=== PATIENT | female | born 1950 | race Caucasian/White ===

== ENCOUNTER 2016-12-03 18:55 | Inpatient (IN) | payer MEDICARE, BC ==
[~2016-12-03] VITALS: Ht 160 cm; Wt 88.9 kg
[~2016-12-03 18:55] MED LIST: AMITRIPTYLINE H75 MG PO; AMOXICILLIN 8751 TAB PO; DARVOCET N 101 UDTAB PO; HYOMAX-SL0.125 MG SL; MACROBID 1100 MG/CAP PO; NORFLEX 10100 MG/TAB PO; PRAVACHOL10 MG PO; PREMARIN 0.60.625 M1 PO; SAVELLA50 MG PO; VIT D; ZOMIG2.5 MG PO
[2016-12-03 19:56] LABS: HEMATOCRIT 39.8 % (37.0-47.0); HEMOGLOBIN 13.6 g/dl (12.5-16.0); MEAN CELL VOLUME 92 fl (80.0-100.0); MEAN CORPUSCULAR HEMOGLOBIN 31 pg (27.0-31.0); MEAN CORPUSCULAR HGB CONC 34 g/dl (33.0-37.0); PLATELET COUNT 97 K/mm3 (130-400); RED BLOOD COUNT 4.33 M/mm3 (4.10-5.30)
[2016-12-03 19:58] LABS: WHITE BLOOD COUNT 1.8 K/mm3 (4.8-10.8)
[2016-12-03 19:59] LABS: ADD PATHOLOGY DIFF REVIEW NO
[2016-12-03 20:04] LABS: ADJUSTED CALCIUM 9.8 mg/dL (8.4-10.2); ALBUMIN 4.5 gm/dL (3.5-5.0); BILIRUBIN,TOTAL 1.1 mg/dL (0.0-1.0); C-REACTIVE PROTEIN 4.7 mg/dL (0.0-0.9); CALCIUM 10.2 mg/dL (8.4-10.2); CREATININE, serum 1.53 mg/dL (0.52-1.25); POTASSIUM 4.4 mmol/L (3.4-5.0); TOTAL PROTEIN 7.4 gm/dL (6.4-8.2)
[2016-12-03 20:12] LABS: INFLUENZA B NEGATIVE
[2016-12-03 20:31] LABS: BAND 4 % (0-10); BASOPHIL 2 % (0-2); NEUTROPHILS 64 % (42.0-75.2); TOTAL CELLS COUNTED 100
[2016-12-03 20:34] LABS: HYPOCHROMIA 1+; MICROCYTOSIS 1+; STOMATOCYTE 1+
[2016-12-03 20:55] LABS: PH 7 (5-8); SQUAMOUS EPITHELIAL 0-2 /hpf; URINE APPEARANCE Hazy; URINE BACTERIA Rare /hpf; URINE BILIRUBIN Negative (NEGATIVE); URINE BLOOD Negative (NEGATIVE); URINE COLOR Yellow; URINE GLUCOSE Negative (NEGATIVE); URINE KETONE Negative (NEGATIVE); URINE RBC 0-2 /hpf; URINE UROBILINOGEN Negative (NEGATIVE)
[2016-12-04] VITALS (589 sets, daily range): BP systolic 75–141; BP diastolic 35–86; PULSE 64–103; TEMP 97–98.7; O2SAT 75–100
[2016-12-04 00:50] LABS: VENOUS BLOOD GAS BE -8.3 (-4-4); VENOUS BLOOD GAS SAO2 61.3 % (60-80)
[2016-12-04 00:51] LABS: VENOUS BLOOD GAS SITE CENTRAL LINE
[2016-12-04 01:07] LABS: INR 1.3 (0.8-3.0)
[2016-12-04 01:26] LABS: SALICYLATE < 1.0 mg/dL
[2016-12-04] MEDS ORDERED: LIPITOR20 MG PO (01:27)
[2016-12-04] MEDS ORDERED: LIPITOR 80MG80 MG PO (01:27)
[2016-12-04] MEDS ORDERED: SYNTHROID0.088 MG/T PO (01:30)
[2016-12-04 01:31] LABS: TROPONIN-I < 0.012 ng/mL (0.000-0.034)
[2016-12-04] MEDS ORDERED: COZAAR 25MG25 MG/TAB PO (01:31)
[2016-12-04] MEDS ORDERED: VITAMIN D1000 IU PO (01:32)
[2016-12-04] MEDS ORDERED: ULTRAM 50MG TAB50 MG (01:33)
[2016-12-04] MEDS ORDERED: KRILL OIL 3001 EACH (01:34)
[2016-12-04] MEDS ORDERED: VOLTAREN GEL 1%1 TU (01:35)
[2016-12-04] MEDS ORDERED: LYRICA 50MG CAP50 MG PO (01:36)
[2016-12-04] MEDS ORDERED: TYLENOL PM EXTR1 TA1 (01:37)
[2016-12-04] MEDS ORDERED: VIMOVO DR 375-1 EACH (01:38)
[2016-12-04] MEDS ORDERED: FLEXERIL5 MG (01:39)
[2016-12-04 04:28] LABS: VENOUS BLOOD GAS BE -8.6 (-4-4); VENOUS BLOOD GAS SAO2 57.8 % (60-80)
[2016-12-04 04:33] LABS: VENOUS BLOOD GAS SITE CENTRAL LINE
[2016-12-04 10:55] LABS: MEAN CELL VOLUME 95 fl (80.0-100.0); MEAN CORPUSCULAR HGB CONC 33 g/dl (33.0-37.0); MEAN PLATELET VOLUME 11.4 fl (7.4-10.4); REDCELL DISTRIBUTION WIDTH-CV 13.9 % (11.5-14.5)
[2016-12-04 11:00] LABS: CALCIUM 7.7 mg/dL (8.4-10.2); CREATININE, serum 1.37 mg/dL (0.52-1.25); POTASSIUM 4.4 mmol/L (3.4-5.0)
[2016-12-04 11:10] LABS: ADD PATHOLOGY DIFF REVIEW NO; HEMATOCRIT 34.1 % (37.0-47.0); HEMOGLOBIN 11.4 g/dl (12.5-16.0); MEAN CORPUSCULAR HEMOGLOBIN 32 pg (27.0-31.0); PLATELET COUNT 80 K/mm3 (130-400); WHITE BLOOD COUNT 22.4 K/mm3 (4.8-10.8)
[2016-12-04 11:33] LABS: BAND 41 % (0-10); METAMYELOCYTE 1 % (0-0); MYELOCYTE 1 % (0-0); NEUTROPHILS 44 % (42.0-75.2); TOTAL CELLS COUNTED 100
[2016-12-04 11:35] LABS: PLATELET ESTIMATE DECREASED (NORMAL)
[2016-12-04] MEDS ORDERED: AMITRIPTYLINE H75 M1 PO (11:51)
[2016-12-05] VITALS (342 sets, daily range): BP systolic 96–135; BP diastolic 46–83; PULSE 73–94; TEMP 97.1–98.5; O2SAT 85–100
[2016-12-05 05:49] LABS: BASO # 0.1 (0.0-0.2); BASO % 0.3 % (0.0-2.0); EOS % 0.1 % (0-4.0); GRAN # 12.4 (1.4-6.5); GRAN % 71.1 % (42.2-75.2); LYMPH # 2.1 (1.2-3.4); LYMPH % 12.1 % (20.0-51.0); MEAN CELL VOLUME 93 fl (80.0-100.0); MEAN CORPUSCULAR HGB CONC 34 g/dl (33.0-37.0); MEAN PLATELET VOLUME 12.3 fl (7.4-10.4); MONO # 0.7 (0.1-0.6); MONO % 3.9 % (1.7-9.3); PLATELET COUNT 62 K/mm3 (130-400); REDCELL DISTRIBUTION WIDTH-CV 14.1 % (11.5-14.5); WHITE BLOOD COUNT 17.5 K/mm3 (4.8-10.8)
[2016-12-05 05:56] LABS: ADJUSTED CALCIUM 8.8 mg/dL (8.4-10.2); ALBUMIN 2.6 gm/dL (3.5-5.0); CALCIUM 7.7 mg/dL (8.4-10.2); CREATININE, serum 0.94 mg/dL (0.52-1.25); TOTAL PROTEIN 5.3 gm/dL (6.4-8.2)
[2016-12-05 06:03] LABS: HEMATOCRIT 29.7 % (37.0-47.0); MEAN CORPUSCULAR HEMOGLOBIN 31 pg (27.0-31.0)
[2016-12-05 06:09] LABS: INR 1.9 (0.8-3.0); PROTHROMBIN TIME 21.8 SECONDS (9.7-12.8)
[2016-12-06 02:48] VITALS: BP 147/78; PULSE 84; TEMP 98.4
[2016-12-06 04:35] VITALS: BP 144/81; PULSE 80; TEMP 98.5
[2016-12-06 08:20] LABS: MEAN CELL VOLUME 94 fl (80.0-100.0); MEAN CORPUSCULAR HGB CONC 34 g/dl (33.0-37.0); MEAN PLATELET VOLUME 12.7 fl (7.4-10.4); PLATELET COUNT 68 K/mm3 (130-400); REDCELL DISTRIBUTION WIDTH-CV 14.2 % (11.5-14.5); WHITE BLOOD COUNT 14.8 K/mm3 (4.8-10.8)
[2016-12-06 08:25] LABS: ADJUSTED CALCIUM 9.8 mg/dL (8.4-10.2); BILIRUBIN,TOTAL 1.3 mg/dL (0.0-1.0); CREATININE, serum 0.87 mg/dL (0.52-1.25); POTASSIUM 4.1 mmol/L (3.4-5.0); TOTAL PROTEIN 5.9 gm/dL (6.4-8.2)
[2016-12-06 08:33] LABS: HEMATOCRIT 31.8 % (37.0-47.0); HEMOGLOBIN 10.7 g/dl (12.5-16.0); MEAN CORPUSCULAR HEMOGLOBIN 31 pg (27.0-31.0)
[2016-12-06 08:34] LABS: ADD PATHOLOGY DIFF REVIEW NO
[2016-12-06 08:56] LABS: INR 1.4 (0.8-3.0); PROTHROMBIN TIME 15.9 SECONDS (9.7-12.8)
[2016-12-06 09:27] VITALS: BP 147/74; PULSE 81; TEMP 96.8
[2016-12-06 12:23] LABS: BAND 19 % (0-10); BASOPHIL 1 % (0-2); NEUTROPHILS 65 % (42.0-75.2); TOTAL CELLS COUNTED 100
[2016-12-06 12:24] LABS: PLATELET ESTIMATE DECREASED (NORMAL)
[2016-12-06 13:03] VITALS: BP 136/81; PULSE 72; TEMP 98.5
[2016-12-06 17:12] VITALS: BP 132/89; PULSE 80; TEMP 97.4
[2016-12-06 20:31] VITALS: BP 145/82; PULSE 76; TEMP 99.6
[2016-12-07 02:46] VITALS: BP 148/87; PULSE 74; TEMP 98.5
[2016-12-07 04:31] VITALS: BP 155/91; PULSE 91; TEMP 97.7
[2016-12-07 07:25] LABS: MEAN CELL VOLUME 92 fl (80.0-100.0); MEAN CORPUSCULAR HGB CONC 34 g/dl (33.0-37.0); MEAN PLATELET VOLUME 12.4 fl (7.4-10.4); PLATELET COUNT 72 K/mm3 (130-400); REDCELL DISTRIBUTION WIDTH-CV 14.3 % (11.5-14.5); WHITE BLOOD COUNT 11.9 K/mm3 (4.8-10.8)
[2016-12-07 07:41] LABS: ADD PATHOLOGY DIFF REVIEW NO; HEMATOCRIT 30.4 % (37.0-47.0); HEMOGLOBIN 10.3 g/dl (12.5-16.0); INR 1.3 (0.8-3.0); MEAN CORPUSCULAR HEMOGLOBIN 31 pg (27.0-31.0); PROTHROMBIN TIME 14.7 SECONDS (9.7-12.8)
[2016-12-07 07:51] LABS: ADJUSTED CALCIUM 9.9 mg/dL (8.4-10.2); ALBUMIN 2.9 gm/dL (3.5-5.0); BILIRUBIN,TOTAL 1.1 mg/dL (0.0-1.0); CREATININE, serum 0.75 mg/dL (0.52-1.25); POTASSIUM 3.9 mmol/L (3.4-5.0); TOTAL PROTEIN 5.7 gm/dL (6.4-8.2)
[2016-12-07 09:39] VITALS: BP 150/84; PULSE 76; TEMP 98.3
[2016-12-07 13:51] VITALS: BP 146/84; PULSE 77; TEMP 98.1
[2016-12-07] MEDS ORDERED: CEFTIN500 MG PO (14:42)
[2016-12-07 14:53] LABS: BAND 14 % (0-10); EOSINOPHIL 5 % (0-4); NEUTROPHILS 52 % (42.0-75.2); TOTAL CELLS COUNTED 100
[2016-12-07 14:54] LABS: ANISOCYTOSIS 1+; PLATELET ESTIMATE NORMAL (NORMAL)
== END 2016-12-07 17:13 | disposition home or self-care (01) | DRG 871 ==
LOC: COL.ER 18:55 → SURG 19:38 → ICU 12-04 00:05 → SURG 12-05 10:56
PROVIDERS: Emergency Medicine; Family Medicine; Nurse Practitioner Family; Urology
PROC: 0T768DZ Dilation of Right Ureter with Intraluminal Device, Via Natural or Artificial Opening Endoscopic (ICD-10-PCS; principal; 2016-12-03 23:00)
PROC: BT1DZZZ Fluoroscopy of Right Kidney, Ureter and Bladder (ICD-10-PCS; 2016-12-03 23:00)
DX: A41.51 Sepsis due to Escherichia coli [E. coli] (principal); K72.00 Acute and subacute hepatic failure without coma; N13.6 Pyonephrosis; N17.9 Acute kidney failure, unspecified; R65.20 Severe sepsis without septic shock; M79.7 Fibromyalgia; D69.6 Thrombocytopenia, unspecified; B96.20 Unspecified Escherichia coli [E. coli] as the cause of diseases classified elsewhere
CPT/HCPCS: 99223-AI; 99233-AI; 99239; C1751; C1769; C2617; G0378; J0690; J0696; J1100; J1650; J1885; J2405; J2704; J3010; J7030; J7060; Q9967

== ENCOUNTER 2016-12-14 12:17 | Day surgery (SDC) | payer MEDICARE, BC ==
[~2016-12-14] VITALS: Ht 160 cm; Wt 78.0 kg
[~2016-12-14 12:17] MED LIST changes: +AMITRIPTYLINE H75 M1 PO; +CEFTIN500 MG PO; +COZAAR 25MG25 MG/TAB PO; +FLEXERIL5 MG; +KRILL OIL 3001 EACH; +LIPITOR 80MG80 MG PO; +LIPITOR20 MG PO; +LYRICA 50MG CAP50 MG PO; +SYNTHROID0.088 MG/T PO; +TYLENOL PM EXTR1 TA1; +ULTRAM 50MG TAB50 MG; +VIMOVO DR 375-1 EACH; +VITAMIN D1000 IU PO; +VOLTAREN GEL 1%1 TU
[2016-12-14 13:11] VITALS: BP 146/89; PULSE 91; TEMP 98.5
[2016-12-14] MEDS ORDERED: VOLTAREN GEL 1%1 TU TP (13:19)
[2016-12-14] MEDS ORDERED: NORFLEX 10100 MG/TAB PO (13:19)
[2016-12-14] MEDS ORDERED: LIPITOR20 MG PO (13:21)
[2016-12-14] MEDS ORDERED: NAPROSYN500 MG PO (13:22)
[2016-12-14] MEDS ORDERED: MULTI VITAMINS1 TAB PO (13:23)
[2016-12-14] MEDS ORDERED: NEXIUM 20MG20 MG PO (13:23)
[2016-12-14] MEDS ORDERED: VITAMIN D32000 IU PO (13:25)
[2016-12-14] MEDS ORDERED: [UNRECOGNIZED DRUG - OTHER] TP (13:26)
[2016-12-14 17:47] VITALS: BP 154/87; PULSE 87; TEMP 98.8
== END 2016-12-14 18:31 | disposition home or self-care (01) ==
LOC: SDCO 12:17 → SURG 17:45 → SDCO 18:31
DX: N20.0 Calculus of kidney (principal); M79.7 Fibromyalgia; Z87.442 Personal history of urinary calculi; Z87.440 Personal history of urinary (tract) infections; Z79.899 Other long term (current) drug therapy
CPT/HCPCS: OP; C1769; C1894; C2617; J0690; J1100; J2405; J2704; J3010; J7120

== ENCOUNTER → 2017-08-08 | Outpatient (CLI) | payer MEDICARE, BC ==
[~2017-08-08] MED LIST changes: +MULTI VITAMINS1 TAB PO; +NAPROSYN500 MG PO; +NEXIUM 20MG20 MG PO; +VITAMIN D32000 IU PO; +VOLTAREN GEL 1%1 TU TP; +[UNRECOGNIZED DRUG - OTHER] TP
== END ==
LOC: MC.RAD 08:09
DX: Z12.31 Encounter for screening mammogram for malignant neoplasm of breast (principal)

== ENCOUNTER → 2018-01-05 | Outpatient (CLI) | payer MEDICARE, BC ==
[2018-01-05 11:33] LABS: COLLECTION METHOD CATHETER
[2018-01-05 11:47] LABS: MUCOUS Present /lpf; PH 5 (5-8); SQUAMOUS EPITHELIAL 0-2 /hpf; URINE APPEARANCE Clear; URINE BACTERIA Occasional /hpf; URINE BILIRUBIN Negative (NEGATIVE); URINE BLOOD Negative (NEGATIVE); URINE COLOR Yellow; URINE GLUCOSE Negative (NEGATIVE); URINE KETONE Negative (NEGATIVE); URINE LEUKOCYTE ESTERASE 3+ (NEGATIVE); URINE NITRATE Negative (NEGATIVE); URINE PROTEIN(semi-quant) Negative (NEGATIVE); URINE RBC 0-2 /hpf; URINE UROBILINOGEN Negative (NEGATIVE)
[2018-01-05 11:49] LABS: URINE WBC 20-50 /hpf
== END ==
LOC: COL.LAB 11:13
PROVIDERS: Urology
DX: Z01.89 Encounter for other specified special examinations (principal)

== ENCOUNTER 2018-04-22 10:15 | Outpatient (RCR) | payer MEDICARE, BC | END 2018-05-06 08:12 | disposition home or self-care (01) | LOC: WSPT 10:15 | DX: M96.1 Postlaminectomy syndrome, not elsewhere classified (principal); M25.552 Pain in left hip | CPT/HCPCS: G8978-GP; G8979-GP; G8980-GP ==

== ENCOUNTER → 2018-12-30 | Outpatient (CLI) | payer MEDICARE, BC | LOC: COL.RAD 14:12 | DX: J84.10 Pulmonary fibrosis, unspecified (principal); R93.1 Abnormal findings on diagnostic imaging of heart and coronary circulation; R07.9 Chest pain, unspecified | CPT/HCPCS: Q9967 ==

== ENCOUNTER → 2019-01-01 | Outpatient (CLI) | payer MEDICARE, BC | LOC: MC.RAD 09:24 | DX: Z12.31 Encounter for screening mammogram for malignant neoplasm of breast (principal) ==

== ENCOUNTER → 2019-05-29 | Outpatient (CLI) | payer MEDICARE, BC | LOC: MC.RAD 09:09 | DX: R22.31 Localized swelling, mass and lump, right upper limb (principal) ==

== ENCOUNTER 2019-09-09 13:45 | Outpatient (RCR) | payer MEDICARE, BC | END 2019-10-15 | disposition home or self-care (01) | LOC: WSPT | DX: M54.5 Low back pain (principal) | CPT/HCPCS: G0283-GP ==

== ENCOUNTER 2020-01-09 08:11 | Emergency (ER) | payer MEDICARE, BC ==
[~2020-01-09] VITALS: Ht 160 cm; Wt 81.8 kg
[2020-01-09] MEDS ORDERED: ZANAFLEX2 MG PO (08:35)
[2020-01-09 08:48] LABS: BASO % 0.3 % (0.0-2.0); EOS # 0.1 (0.0-0.7); GRAN % 69.1 % (42.2-75.2); HEMATOCRIT 40.5 % (37.0-47.0); HEMOGLOBIN 13.2 g/dl (12.5-16.0); LYMPH # 2.2 (1.2-3.4); LYMPH % 19.3 % (20.0-51.0); MEAN CELL VOLUME 95 fl (80.0-100.0); MEAN CORPUSCULAR HEMOGLOBIN 31 pg (27.0-31.0); MEAN CORPUSCULAR HGB CONC 33 g/dl (33.0-37.0); MEAN PLATELET VOLUME 10.9 fl (7.4-10.4); MONO # 1.2 (0.1-0.6); MONO % 9.9 % (1.7-9.3); PLATELET COUNT 152 K/mm3 (130-400); RED BLOOD COUNT 4.27 M/mm3 (4.10-5.30); REDCELL DISTRIBUTION WIDTH-CV 12.8 % (11.5-14.5)
[2020-01-09 08:54] LABS: PROTHROMBIN TIME 11.1 SECONDS (9.7-12.8)
[2020-01-09 09:01] LABS: BILIRUBIN,TOTAL 0.8 mg/dL (0.0-1.0); CALCIUM 9.8 mg/dL (8.4-10.2); CREATININE, serum 0.68 (0.52-1.25); POTASSIUM 4.1 mmol/L (3.4-5.0); TOTAL PROTEIN 7.1 gm/dL (6.4-8.2)
[2020-01-09 10:26] LABS: COLLECTION METHOD CLEAN CATCH
[2020-01-09 10:31] LABS: PH 7 (5-8); SQUAMOUS EPITHELIAL 0-2 /hpf; URINE APPEARANCE Clear; URINE BACTERIA None Seen /hpf; URINE BILIRUBIN Negative (NEGATIVE); URINE BLOOD Negative (NEGATIVE); URINE COLOR Straw; URINE GLUCOSE Negative (NEGATIVE); URINE KETONE Negative (NEGATIVE); URINE LEUKOCYTE ESTERASE Negative (NEGATIVE); URINE NITRATE Negative (NEGATIVE); URINE PROTEIN(semi-quant) Negative (NEGATIVE); URINE RBC None Seen /hpf; URINE UROBILINOGEN Negative (NEGATIVE)
[2020-01-09] MEDS ORDERED: NORCO 325 MG-51 TAB PO (11:22)
[2020-01-09 11:35] VITALS: BP 136/75; PULSE 89; TEMP 98.4
== END 2020-01-09 11:36 | disposition home or self-care (01) ==
LOC: COL.ER 08:11
PROVIDERS: Emergency Medicine
DX: R55 Syncope and collapse (principal); K21.9 Gastro-esophageal reflux disease without esophagitis; M79.7 Fibromyalgia; Z90.89 Acquired absence of other organs
CPT/HCPCS: J3010; J7030

== ENCOUNTER 2022-03-11 14:57 | Emergency (ER) | payer MEDICARE, BC ==
[~2022-03-11] VITALS: Ht 160 cm; Wt 76.8 kg
[~2022-03-11 14:57] MED LIST changes: +NORCO 325 MG-51 TAB PO; +ZANAFLEX2 MG PO
[2022-03-11 15:59] LABS: BASO % 0.5 % (0.0-2.0); EOS % 0.5 % (0.0-4.0); GRAN # 6.7 K/mm3 (1.4-6.5); GRAN % 85.2 % (42.2-75.2); HEMOGLOBIN 12.6 g/dl (12.5-16.0); LYMPH # 0.7 K/mm3 (1.2-3.4); LYMPH % 8.6 % (20.0-51.0); MEAN CELL VOLUME 93 fl (80.0-100.0); MEAN CORPUSCULAR HEMOGLOBIN 32 pg (27-31); MEAN CORPUSCULAR HGB CONC 34 g/dl (33.0-37.0); MEAN PLATELET VOLUME 11.1 fl (7.4-10.4); MONO # 0.4 K/mm3 (0.1-0.6); MONO % 4.9 % (1.7-9.3); PLATELET COUNT 144 K/mm3 (130-400); RED BLOOD COUNT 3.99 M/mm3 (4.10-5.30); REDCELL DISTRIBUTION WIDTH-CV 13.1 % (11.5-14.5)
[2022-03-11 16:19] LABS: ALBUMIN 3.7 gm/dL (3.4-4.8); BILIRUBIN,TOTAL 1.2 mg/dL (0.2-1.2); CALCIUM 9.9 mg/dL (8.4-10.2); CREATININE, serum 0.81 mg/dL (0.57-1.11); POTASSIUM 3.7 mmol/L (3.5-4.5); TOTAL PROTEIN 6.9 gm/dL (6.2-8.1)
[2022-03-11 16:27] VITALS: TEMP 100.7
[2022-03-11 16:31] LABS: COLLECTION METHOD CLEAN CATCH
[2022-03-11 16:53] LABS: MUCOUS Present (NOT PRESENT); PH 6 (5-8); SQUAMOUS EPITHELIAL None Seen /hpf (0-10); URINE APPEARANCE Cloudy (CLEAR/HAZY); URINE BACTERIA Rare /hpf (NONE SEEN); URINE BLOOD Negative (NEGATIVE); URINE COLOR Yellow (YELLOW); URINE GLUCOSE Negative (NEGATIVE); URINE KETONE Negative (NEGATIVE); URINE NITRATE Positive (NEGATIVE); URINE PROTEIN(semi-quant) 1+ (NEGATIVE); URINE UROBILINOGEN Negative (NEGATIVE)
[2022-03-11] MEDS ORDERED: CEFTIN500 MG PO (17:34)
[2022-03-11 17:41] VITALS: BP 129/66; PULSE 92
== END 2022-03-11 17:49 | disposition home or self-care (01) ==
LOC: COL.ER 14:57
PROVIDERS: Family Medicine
DX: N30.00 Acute cystitis without hematuria (principal); R05.9 Cough, unspecified; R00.0 Tachycardia, unspecified; Z20.822 Contact with and (suspected) exposure to COVID-19
CPT/HCPCS: J0696; J7030

== ENCOUNTER 2023-05-07 09:45 | Outpatient (RCR) | payer MEDICARE, BC ==
[2023-05-31] MEDS ORDERED: CEPHALEXIN500 M1 PO (07:51)
== END 2023-05-11 | disposition home or self-care (01) ==
LOC: WSPT
DX: M25.572 Pain in left ankle and joints of left foot (principal); M54.50 Low back pain, unspecified; Z98.890 Other specified postprocedural states

== ENCOUNTER 2023-05-15 08:27 | Outpatient (RCR) | payer MEDICARE, BC ==
[2023-05-31] MEDS ORDERED: CEPHALEXIN500 M1 PO (07:51)
== END 2023-05-15 12:00 | disposition home or self-care (01) ==
LOC: WSPT 08:27
DX: M25.572 Pain in left ankle and joints of left foot (principal); M54.50 Low back pain, unspecified

== ENCOUNTER → 2024-05-20 | Outpatient (CLI) | payer MEDICARE, BC ==
[~2024-05-20] MED LIST changes: +CEPHALEXIN500 M1 PO
== END ==
LOC: COL.RAD 08:12
DX: Q43.8 Other specified congenital malformations of intestine (principal)